=== PATIENT | female | born 1960 | race Caucasian/White ===

== ENCOUNTER 2021-12-22 11:30 | Emergency (ER) | payer OTHER, SELFPAY ==
[2021-12-22 11:46] VITALS: BP 133/75; PULSE 100; RESP 20; TEMP 36.9; O2SAT 100
--- NOTE | 2021-12-22 12:08 | ED.GENADULT ---
HPI - General Adult General Chief complaint: Upper Respiratory Infection Stated complaint: COVID Positive - Weakness Source: patient Mode of arrival: ambulatory Limitations: no limitations History of Present Illness HPI narrative: Patient presents for evaluation after testing positive for COVID. One week ago she developed a headache. The following day she took a home COVID test which was positive. The day after that she went to [facility] and had a confirmation test. She had not received COVID vaccination. She reports fatigue, body aches, occasional cough, mild shortness of breath. No fever, chills, vomiting. She has been taking excedrin for her symptoms No additional complaints or concerns. Related Data Home Medications Medication Instructions Recorded Confirmed levothyroxine 75 mcg tablet mcg 12/22/21 (Euthyrox) sertraline 50 mg tablet mg 12/22/21 Allergies Allergy/AdvReac Type Severity Reaction Status Date / Time Sulfa (Sulfonamide Allergy Unknown Verified 12/22/21 11:48 Antibiotics) Review of Systems Review of Systems: CONSTITUTIONAL: Reports fatigue. Denies fever, chills, or sweats. EYES: Denies visual changes, redness, or discharge. ENT: Denies rhinorrhea, congestion, sore throat, or otalgia. CARDIOVASCULAR: Denies chest pain, palpitations, or edema. RESPIRATORY: Reports cough and mild SOB. GASTROINTESTINAL: Denies abdominal pain, nausea, vomiting, or diarrhea. GENITOURINARY: Denies dysuria or hematuria. SKIN: Denies rash or itching. MUSCULOSKELETAL: Reports generalized body aches NEUROLOGIC: Reports headache. Denies numbness, dizziness, or weakness. PSYCHIATRIC: Denies anxiety or depression. [facility] Past Medical History Medical History No pertinent past medical history Surgical History Surgical History No pertinent past surgical history Family History Family History (Updated 12/22/21 @ 12:21 by MIMI Moreira, EDGARDO) Mother Heart disease Social History Social History Living arrangements: with family Gender identity (if verbalized by the patient): Female Sexual Orientation (if Verbalized by the Patient): Straight or Heterosexual Spiritual care concerns: No Course Course Emergency Course: This is a 61-year-old female who presented for evaluation after testing positive for COVID. She is out of window to start paxlovid. We will start Mucinex DM. Offered medications for other symptoms. She declined. Follow-up outpatient. Increase hydration. Go to the ER for declining condition. Patient agreement with plan of care. Level of Care: Express Care Visit Vital Signs Vital signs: Vital Signs Temperature 36.9 C 12/22/21 11:46 Pulse Rate 100 12/22/21 11:46 Respiratory Rate 20 12/22/21 11:46 Blood Pressure 133/75 12/22/21 11:46 Pulse Oximetry 100 12/22/21 11:46 Oxygen Delivery Room Air 12/22/21 11:46 Temperature 36.9 C 12/22/21 11:46 Pulse Rate 100 12/22/21 11:46 Respiratory Rate 20 12/22/21 11:46 Blood Pressure 133/75 12/22/21 11:46 Pulse Oximetry 12/22/21 11:46 Oxygen Delivery Room Air 12/22/21 11:46 Medical Decision Making Vital Signs Vital Signs: Vital Signs Temperature 36.9 C 12/22/21 11:46 Pulse Rate 100 12/22/21 11:46 Respiratory Rate 12/22/21 11:46 Blood Pressure 133/75 12/22/21 11:46 Pulse Oximetry 12/22/21 11:46 Oxygen Delivery Room Air 12/22/21 11:46 Temperature 36.9 C 12/22/21 11:46 Pulse Rate 100 12/22/21 11:46 Respiratory Rate 20 12/22/21 11:46 Blood Pressure 133/75 12/22/21 11:46 Pulse Oximetry 100 12/22/21 11:46 Oxygen Delivery Room Air 12/22/21 11:46 Discharge Plan Discharge Clinical Impression: COVID Patient Disposition: Home, Self-Care Condition:
== END 2021-12-22 12:08 | disposition home or self-care (01) ==
PROVIDERS: Emergency Provider Nurse Practitioner
DX: U07.1 COVID-19 (principal)
CPT/HCPCS: 99213; G0463